=== PATIENT | male | born 1960 | race Caucasian/White ===

== ENCOUNTER → 2024-04-19 12:18 | Outpatient (REF) | payer OTHER, SELFPAY | LOC: DHSLP 12:18 | PROVIDERS: ATTENDING PHYSICIAN Internal Medicine | DX: G47.33 Obstructive sleep apnea (adult) (pediatric) (principal) | CPT/HCPCS: 95800 ==

== ENCOUNTER → 2024-07-26 06:03 | Outpatient (REF) | payer OTHER, SELFPAY | LOC: HWCARD 06:03 | PROVIDERS: ATTENDING PHYSICIAN Specialist | DX: Z01.818 Encounter for other preprocedural examination (principal) | CPT/HCPCS: 93005 ==

== ENCOUNTER → 2024-10-02 10:11 | Outpatient (REF) | payer OTHER, SELFPAY | LOC: RCS 10:11 | PROVIDERS: ATTENDING PHYSICIAN Nuclear Medicine Nuclear Cardiology | DX: I10 Essential (primary) hypertension (principal) | CPT/HCPCS: 93306 ==

== ENCOUNTER → 2024-10-04 11:46 | Outpatient (REF) | payer OTHER, SELFPAY | LOC: RCS 11:46 | PROVIDERS: ATTENDING PHYSICIAN Nuclear Medicine Nuclear Cardiology | DX: I10 Essential (primary) hypertension (principal); E78.1 Pure hyperglyceridemia; E78.2 Mixed hyperlipidemia; R06.09 Other forms of dyspnea; Z90.5 Acquired absence of kidney | CPT/HCPCS: 78452; 93017; A9500; J2785 ==